=== PATIENT | male | born 1990 | race Asian ===

== ENCOUNTER 2020-01-21 01:16 | Emergency (ER) | payer MEDICAID ==
[~2020-01-21] VITALS: Ht 188 cm; Wt 139.3 kg
[2020-01-21 01:19] VITALS: BP 143/94
[2020-01-21] MEDS ORDERED: OXYcodone/APAP 5/325MG TABLET ONE (02:27)
[2020-01-21] MEDS ORDERED: OXYcodone/APAP 5/325MG TABLET PO ONE (02:30)
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
== END 2020-01-21 03:02 | disposition home or self-care (01) ==
LOC: ED 01:57
DX: K64.4 Residual hemorrhoidal skin tags (principal); R10.2 Pelvic and perineal pain; F17.210 Nicotine dependence, cigarettes, uncomplicated
CPT/HCPCS: 99283; 99406